=== PATIENT | female | born 1955 | race Caucasian/White ===

== ENCOUNTER 2018-06-16 17:18 | Emergency (ER) | payer BC ==
--- OUTSIDE RECORDS SUMMARY | 2018-06-16 17:28 | XMS REPORT ---
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 Active Onset: 09/19/2012 Medications Custodial (Current) Use [place] Mcconnell M.D. Active Encounter Onset: 09/19/2012 Nxxad-3-gvgsipjooak deficiency [place] Mcconnell M.D. Active Onset: 12/19/2012 Crohn's disease [place] Mcconnell M.D. Active Onset: 12/03/2014 Taking medication ROLANDO [place] Active Social History Type Date Description Comments ETOH Use Denies alcohol use Smoking Patient is a former smoker quit in 09/2013 Allergies, Adverse Reactions, Alerts Date Description Reaction Status Severity Comments 05/04/2011 Penicillin active Medications Medication Date Status Form Strength Qnty SIG Indications Ordering Provider Diclofenac Active Gel 1% 100unit apply M25.562 Zsofia Sodium 018 s 2gms to [facility], CLINICAL REVIEW NURSE left knee twice a day Sulfasalazine Active Tablets 500mg 180tabs 2 tabs M45.0 Zsofia 016 by mouth JUS ElyP twice a day Z79.899 Hydrocodone-Acetaminophen 10/14/2015 Active Tablets 5-325mg 60tabs 1 tab M25.562 Zsofia by [facility], mouth CLINICAL REVIEW NURSE every 6 hours as needed for pain F11.90 Zyrtec 03/13/2013 Active Capsules 10mg 30caps 1 po qd Other Allergy Ordering Provider Humira Pen 05/04/2011 Active PNKT 40mg/0.8M 2units Inject 40 M45.0 Zsofia L MG (0.8 ML) ROLANDO Ely Under The Skin Every Other Week Z79.899 Calcium 500 + D Active Tablets [id number]-[id number] i po bid M85.9 Unknown Vitamin E Active Capsules 400Unit 1 po qd Unknown Vitamin C Plus Active Tablets 500mg Unknown [place] Active Capsules 4-3-18-325mg as needed Unknown Plus Cold & Cough Alendronate Active Tablets 70mg 1 by mouth Z79.899 Unknown Sodium weekly M85.9 Tacrolimus Cream Active prn Unknown Omeprazole Active Capsules DR 40mg 1 by mouth Unknown bid Vitamin D-3 Active Capsules 1000 2 by mouth E55. Unknown Unit every day 9 Azelastine HCL Active Solution 0.1% spray 1 Unknown (Nasal) spray in each nostril two times a day as needed Fluticasone Active Suspension 50mc 2 sprays Unknown Propionate g/Ac each t nostril daily as needed Oxybutynin Active Tablets ER 10mg 1 by mouth Unknown Chloride ER 24HR every day Centrum Adults Active Tablets once a day Unknown Metamucil Active Powder 28.3 as needed Unknown % Methotrexate 03/22/2017 - Hx Tablets 2.5m 48ta 4 tbs by M45. Zsofia 06/27/2017 g bs mouth every 0 [facility], week CLINICAL REVIEW NURSE Folic Acid 03/22/2017 - Hx Tablets 1mg 90ta 1 by mouth Z79. Zsofia 06/27/2017 bs every day 899 [facility], CLINICAL REVIEW NURSE Voltaren 08/10/2016 - Hx Gel 1% 100g apply 2 M25. Zsofia 02/03/2018 m grams to 562 [facility], left knee CLINICAL REVIEW NURSE twice a day Sulfasalazine 02/10/2016 - Hx Tablets 500m 270t 2 tabs by M45. Zsofia 02/10/2016 g abs mouth in 0 [facility], the morning CLINICAL REVIEW NURSE and 1 tab in the evening Z79.899 Sulfasalazine 02/10/2016 - Hx Tablets DR 500mg 270tabs 2 tabs by M45.0 Zsofia 05/04/2016 mouth in [facility], CLINICAL REVIEW NURSE the morning and 1 tab at night daily Z79.899 Ergocalciferol 10/22/2015 - Hx Capsules [id number] 8caps 1 tab by Zsofia 02/10/2016 mouth [facility], weekly for CLINICAL REVIEW NURSE 8 weeks then resume 1000 iu daily dose and repeat labs Hydrocodone/Acetam 10/14/2015 - Hx 1 tab by Z79 Zsofiyoselyn inophen 500-300 MG 10/14/2015 mouth .89 [facility], every 6 - 9 CLINICAL REVIEW NURSE 8 hours as needed Vitamin D 12/03/2014 - Hx Capsules [id number] 8caps take 1 268 Zsofia (Ergocalciferol) 06/03/2015 capsule .9 [facility], every week CLINICAL REVIEW NURSE for 8 weeks Sulfasalazine 12/03/2014 - Hx Tablets DR 500mg 60tabs 1 by mouth M45 Zsofia 02/10/2016 twice .0 [facility], daily CLINICAL REVIEW NURSE Z79.899 Patanol 12/03/2014 - Hx 0.1% 5ml 1 gtt both 477.9 Zsofia 02/10/2016 eyes twice [facility], daily (pt CLINICAL REVIEW NURSE is not taking this ) Vitamin D 04/16/2014 - Hx Capsules [id number] 8caps take 1 268.9 Zsofia (Ergocalciferol) 08/20/2014 it capsule a [facility], week for 8 CLINICAL REVIEW NURSE weeks Hydrocodone/Aceta 01/22/2014 - Hx Tablets 5-325mg 90tabs 1 tablet by Z79.899 Zsofia minophen 10/14/2015 mouth every [facility], 6 hours as CLINICAL REVIEW NURSE needed Sulfasalazine 06/12/2013 - Hx Tablets 500mg 90tabs take 1 tab 555.9 Zsofia 12/03/2014 by mouth [facility], three times CLINICAL REVIEW NURSE a day 720.0 V58.69 Sulfasalazine 03/13/2013 - Hx Tablets 500mg 180tabs Take 2 Zsofia 06/12/2013 tabs po in [facility], CLINICAL REVIEW NURSE the morning and 1 tab po in the evening Hydrocodone/Aceta 05/04/2011 - Hx Tablets 5-500mg 120tabs Take 1 tab Zsofia minophen 01/22/2014 po q 6 [facility], CLINICAL REVIEW NURSE hours for pain as needed Sulfasalazine 05/04/2011 - Hx Tablets 500mg 60tabs Take One [place] 03/13/2013 Tablet By Roopa Mcconnell Mouth Twice Daily Ibuprofen 04/11/2011 - Hx Tablets 800mg 60tabs 1 po bid [place] 09/19/2012 Roopa Mcconnell Claudia Allergy - Hx Tablets 180mg 30tabs once daily Unknown 03/04/2015 Tylenol Extra - Hx Tablets 500mg 2 po prn Unknown Strength 09/19/2012 Multi Vitamin - Hx Tablets 1 po qd Unknown 09/19/2012 Prilosec - Hx Capsules DR 20mg 30caps 1 po qd Unknown 06/03/2015 Excedrin Extra - Hx Tablets 250-250- 100tabs 1-2 bid Unknown Strength 09/19/2012 65mg prn Fosamax - Hx Tablets 70mg 12tabs one tablet Unknown 09/18/2013 weekly Fluticasone - Hx Suspension 50mcg/Ac Instill 2 Unknown Propionate 06/03/2015 t Sprays Ien Once D Vitamin C - Hx Capsules 500-400m 1 by mouth Unknown W/Vitamin 06/27/2017 g-Unit every day E Immunizations CPT Code Status Date Vaccine Lot # [id number] Given 10/11/2017 Pneumonia Vaccine [id number] 19684 Given 10/14/2015 Pneumococcal Conjugate Vaccine 13 Valent For [id number] Intramuscular Use [id number] Given 08/27/2012 Fluzone Vaccine Vital Signs Date Vital Result Comment 05/30/2018 Height 62.25 inches 5'2.25" Weight 170.50 lb Heart Rate 73 /min BP Systolic Sitting 122 mmHg BP Diastolic Sitting 78 mmHg Pain Level 0 O2 % BldC Oximetry 95 % BMI (Body Mass Index) 30.9 kg/m2 02/21/2018 Height 62.25 inches 5'2.25" Weight 168.25 lb Heart Rate 80 /min BP Systolic Sitting 142 mmHg BP Diastolic Sitting 88 mmHg Respiratory Rate 14 /min Pain Level 1 BMI (Body Mass Index) 30.5 kg/m2 10/11/2017 Height 62.25 inches 5'2.25" Weight 169.12 lb Heart Rate 76 /min BP Systolic Sitting 122 mmHg BP Diastolic Sitting 74 mmHg Respiratory Rate 14 /min BMI (Body Mass Index) 30.7 kg/m2 06/28/2017 Height 62.25 inches 5'2.25" Weight 167.12 lb Heart Rate 72 /min BP Systolic Sitting 120 mmHg BP Diastolic Sitting 80 mmHg Respiratory Rate 14 /min Body Temperature 97.9 F Pain Level 1 BMI (Body Mass Index) 30.3 kg/m2 03/22/2017 Height 62.25 inches 5'2.25" Weight 171.00 lb Heart Rate 84 /min BP Systolic Sitting 140 mmHg BP Diastolic Sitting 90 mmHg Respiratory Rate 14 /min BMI (Body Mass Index) 31.0 kg/m2 12/14/2016 Weight 174.31 lb Heart Rate 65 /min BP Systolic Sitting 106 mmHg BP Diastolic Sitting 54 mmHg Body Temperature 97.5 F Pain Level 2 O2 % BldC Oximetry 98 % 12/14/2016 Weight 174.12 lb Heart Rate 75 /min BP Systolic Sitting 106 mmHg BP Diastolic Sitting 52 mmHg Body Temperature 97.4 F Pain Level 2 O2 % BldC Oximetry 98 % 08/10/2016 Height 65.25 inches 5'5.25" Weight 167.00 lb Heart Rate 88 /min BP Systolic Sitting 118 mmHg BP Diastolic Sitting 70 mmHg Body Temperature 98.1 F Pain Level 0 BMI (Body Mass Index) 27.6 kg/m2 05/04/2016 Height 65.25 inches 5'5.25" Weight 169.50 lb Heart Rate 76 /min BP Systolic Sitting 120 mmHg BP Diastolic Sitting 84 mmHg Body Temperature 98.4 F Pain Level 1 BMI (Body Mass Index) 28.0 kg/m2 02/10/2016 Height 65.25 inches 5'5.25" Weight 170.00 lb Heart Rate 80 /min BP Systolic Sitting 124 mmHg BP Diastolic Sitting 76 mmHg Pain Level 1 BMI (Body Mass Index) 28.1 kg/m2 10/14/2015 Height 65.25 inches 5'5.25" Weight 170.00 lb Heart Rate 68 /min BP Systolic Sitting 110 mmHg BP Diastolic Sitting 70 mmHg Pain Level 4 BMI (Body Mass Index) 28.1 kg/m2 06/03/2015 Height 65.25 inches 5'5.25" Weight 169.00 lb Heart Rate 82 /min BP Systolic Sitting 112 mmHg BP Diastolic Sitting 78 mmHg Pain Level 1 BMI (Body Mass Index) 27.9 kg/m2 03/04/2015 Height 65.25 inches 5'5.25" Weight 172.38 lb Heart Rate 82 /min BP Systolic Sitting 104 mmHg BP Diastolic Sitting 80 mmHg Respiratory Rate 16 /min Pain Level 3 BMI (Body Mass Index) 28.5 kg/m2 12/03/2014 Height 65.25 inches 5'5.25" Weight 174.50 lb Heart Rate 84 /min BP Systolic Sitting 118 mmHg BP Diastolic Sitting 70 mmHg Pain Level 3 BMI (Body Mass Index) 28.8 kg/m2 08/20/2014 Height 65.25 inches 5'5.25" Weight 172.00 lb Heart Rate 72 /min BP Systolic Sitting 130 mmHg BP Diastolic Sitting 80 mmHg Pain Level 0 BMI (Body Mass Index) 28.4 kg/m2 04/16/2014 Height 65.25 inches 5'5.25" Weight 168.50 lb Heart Rate 88 /min BP Systolic Sitting 92 mmHg BP Diastolic Sitting 60 mmHg Pain Level 0 BMI (Body Mass Index) 27.8 kg/m2 01/22/2014 Height 65.25 inches 5'5.25" Weight 165.00 lb Heart Rate 84 /min BP Systolic Sitting 116 mmHg BP Diastolic Sitting 72 mmHg BMI (Body Mass Index) 27.2 kg/m2 09/18/2013 Height 65.25 inches 5'5.25" Weight 159.00 lb Heart Rate 80 /min BP Systolic Sitting 124 mmHg BP Diastolic Sitting 82 mmHg BMI (Body Mass Index) 26.3 kg/m2 06/12/2013 Weight 155.00 lb Heart Rate 77 /min BP Systolic Sitting 108 mmHg BP Diastolic Sitting 70 mmHg 03/13/2013 Height 64 inches 5'4" Weight 142.00 lb Heart Rate 72 /min BP Systolic Sitting 110 mmHg BP Diastolic Sitting 62 mmHg BMI (Body Mass Index) 24.4 kg/m2 12/19/2012 Height 64 inches 5'4" Weight 138.50 lb Heart Rate 71 /min BP Systolic Sitting 127 mmHg BP Diastolic Sitting 67 mmHg BMI (Body Mass Index) 23.8 kg/m2 09/19/2012 Height 64 inches 5'4" Weight 145.00 lb Heart Rate 77 /min BP Systolic Sitting 120 mmHg BP Diastolic Sitting 71 mmHg BMI (Body Mass Index) 24.9 kg/m2 05/16/2012 Height 64 inches 5'4" Weight 136.50 lb Heart Rate 68 /min BP Systolic Sitting 123 mmHg BP Diastolic Sitting 66 mmHg BMI (Body Mass Index) 23.4 kg/m2 01/11/2012 Height 64 inches 5'4" Weight 132.00 lb Heart Rate 74 /min BP Systolic Sitting 119 mmHg BP Diastolic Sitting 71 mmHg BMI (Body Mass Index) 22.7 kg/m2 09/07/2011 Height 64 inches 5'4" Weight 145.00 lb Heart Rate 64 /min BP Systolic Sitting 110 mmHg BP Diastolic Sitting 80 mmHg BMI (Body Mass Index) 24.9 kg/m2 05/04/2011 Weight 150.00 lb Heart Rate 80 /min BP Systolic 116 mmHg BP Diastolic 70 mmHg Results Test Date Test Result H/L Range Note Comp Metabolic Panel 09/15/2013 Sodium 137 mmol/L 133-145 Potassium 4.7 mmol/L 3.5-5.0 Chloride 104 mmol/L 101-111 Co2 Carbon Dioxide 29.0 mmol/L 22-32 Anion Gap 4.0 mmol/L 2-11 Glucose 89 mg/dL 70-100 Blood Urea Nitrogen 12 mg/dL 6-24 Creatinine 0.60 mg/dL 0.50-1.40 BUN/Creatinine Ratio 20.0 8-20 Calcium 9.4 mg/dL 8.1-9.9 Total Protein 6.1 g/dL Low 6.2-8.1 Albumin 3.6 g/dL 3.6-5.4 Globulin 2.5 g/dL 2-4 Albumin/Globulin Ratio 1.4 1-3 Total Bilirubin 0.7 mg/dL 0.4-1.5 Alkaline Phosphatase 47 U/L 30-110 Alt 19 U/L 14-54 Ast 21 U/L 12-42 Egfr Non- 103.0 >60 Egfr 132.5 >60 1 Laboratory test 09/15/2013 C Reactive Protein 1.3 mg/dL High Less than 0.5 finding Laboratory test 09/15/2013 Erythrocyte Sed Rate 41 mm/Hr High 0-30 finding CBC Auto Diff 09/15/2013 White Blood Count 7.1 10^3/uL 4.8-10.8 Red Blood Count 4.01 10^6/uL 4.0-5.4 Hemoglobin 12.3 g/dL 12.0-16.0 Hematocrit 38 % 35-47 Mean Corpuscular Volume 95 fL 80-97 Mean Corpuscular Hemoglobin 31 pg 27-31 Mean Corpuscular HGB Conc 32 g/dL 31-36 Red Cell Distribution Width 13 % 10.5-15 Platelet Count 347 10^3/uL 150-450 Mean Platelet Volume 9 um3 7.4-10.4 Abs Neutrophils 4.6 10^3/uL 1.5-7.7 Abs Lymphocytes 1.7 10^3/uL 1.0-4.8 Abs Monocytes 0.8 10^3/uL 0-0.8 Abs Eosinophils 0 10^3/uL 0-0.6 Abs Basophils 0 10^3/uL 0-0.2 Abs Nucleated RBC 0 10^3/uL Granulocyte % 64.0 % 38-83 Lymphocyte % 23.4 % Low 25-47 Monocyte % 11.6 % High 1-9 Eosinophil % 0.6 % 0-6 Basophil % 0.4 % 0-2 Nucleated Red Blood Cells % 0 Laboratory test finding 06/04/2013 Erythrocyte Sed Rate 37 mm/Hr High 0- 30 CBC With Manual Diff 06/04/2013 White Blood Count 8.3 10^3/uL 4.8-10.8 Red Blood Count 3.83 10^6/uL Low 4.0-5.4 Hemoglobin 12.0 g/dL 12.0-16.0 Hematocrit 37 % 35-47 Mean Corpuscular Volume 96 fL 80-97 Mean Corpuscular Hemoglobin 31 pg 27-31 Mean Corpuscular HGB Conc 33 g/dL 31-36 Red Cell Distribution Width 13 % 10.5-15 Platelet Count 346 10^3/uL 150-450 Mean Platelet Volume 8 um3 7.4-10.4 Abs Neutrophils 5.5 10^3/uL 1.5-7.7 Abs Lymphocytes 1.9 10^3/uL 1.0-4.8 Abs Monocytes 0.8 10^3/uL 0-0.8 Abs Eosinophils 0.1 10^3/uL 0-0.6 Abs Basophils 0 10^3/uL 0-0.2 Abs Nucleated RBC 0 10^3/uL Neutrophil % 58 % 38-83 Lymphocytes % 25 % 25-47 Monocytes % 14 % High 0-13 Eosinophils % 2 % 0-6 Reactive Lymph % 1 % 0-6 RBC Morphology Normal Normal Laboratory test finding 06/04/2013 C Reactive Protein 1.1 mg/dL High Less than 0.5 Comp Metabolic Panel 06/04/2013 Sodium 140 mmol/L 133-145 Potassium 3.8 mmol/L 3.5-5.0 Chloride 108 mmol/L 101-111 Co2 Carbon Dioxide 28.0 mmol/L 22-32 Anion Gap 4.0 mmol/L 2-11 Glucose 84 mg/dL 70-100 Blood Urea Nitrogen 11 mg/dL 6-24 Creatinine 0.60 mg/dL 0.50-1.40 BUN/Creatinine Ratio 18.3 8-20 Calcium 8.8 mg/dL 8.1-9.9 Total Protein 6.0 g/dL Low 6.2-8.1 Albumin 3.3 g/dL Low 3.6-5.4 Globulin 2.7 g/dL 2-4 Albumin/Globulin Ratio 1.2 1-3 Total Bilirubin 0.6 mg/dL 0.4-1.5 Alkaline Phosphatase 46 U/L 30-110 Alt 15 U/L 14-54 Ast 20 U/L 12-42 Egfr Non- 103.0 >60 Egfr 132.5 >60 2 Laboratory test finding 03/05/2013 Erythrocyte Sed Rate 40 mm/Hr High 0- 30 CBC Auto Diff 03/05/2013 White Blood Count 6.5 10^3/uL 4.8-10.8 Red Blood Count 3.90 10^6/uL Low 4.0-5.4 Hemoglobin 12.3 g/dL 12.0-16.0 Hematocrit 37 % 35-47 Mean Corpuscular Volume 94 fL 80-97 Mean Corpuscular Hemoglobin 32 pg High 27-31 Mean Corpuscular HGB Conc 34 g/dL 31-36 Red Cell Distribution Width 13 % 10.5-15 Platelet Count 363 10^3/uL 150-450 Mean Platelet Volume 9 um3 7.4-10.4 Abs Neutrophils 4.0 10^3/uL 1.5-7.7 Abs Lymphocytes 1.8 10^3/uL 1.0-4.8 Abs Monocytes 0.6 10^3/uL 0-0.8 Abs Eosinophils 0.1 10^3/uL 0-0.6 Abs Basophils 0 10^3/uL 0-0.2 Abs Nucleated RBC 0 10^3/uL Granulocyte % 61.7 % 38-83 Lymphocyte % 27.5 % 25-47 Monocyte % 9.4 % High 1-9 Eosinophil % 1.2 % 0-6 Basophil % 0.2 % 0-2 Nucleated Red Blood Cells % 0 Laboratory test finding 03/05/2013 C Reactive Protein 0.9 mg/dL High Less than 0.5 Comp Metabolic Panel 03/05/2013 Sodium 140 mmol/L 133-145 Potassium 4.2 mmol/L 3.5-5.0 Chloride 107 mmol/L 101-111 Co2 Carbon Dioxide 28.0 mmol/L 22-32 Anion Gap 5.0 mmol/L 2-11 Glucose 94 mg/dL 70-100 Blood Urea Nitrogen 11 mg/dL 6-24 Creatinine 0.60 mg/dL 0.50-1.40 BUN/Creatinine Ratio 18.3 8-20 Calcium 9.0 mg/dL 8.1-9.9 Total Protein 5.8 g/dL Low 6.2-8.1 Albumin 3.2 g/dL Low 3.6-5.4 Globulin 2.6 g/dL 2-4 Albumin/Globulin Ratio 1.2 1-3 Total Bilirubin 0.8 mg/dL 0.4-1.5 Alkaline Phosphatase 36 U/L 30-110 Alt 13 U/L Low 14-54 Ast 17 U/L 12-42 Egfr Non- 103.0 >60 Egfr 132.5 >60 3 Comp Metabolic Panel 12/16/2012 Sodium 136 mmol/L 133-145 Potassium 4.0 mmol/L 3.5-5.0 Chloride 104 mmol/L 101-111 Co2 Carbon Dioxide 28.0 mmol/L 22-32 Anion Gap 4.0 mmol/L 2-11 Glucose 84 mg/dL 70-100 Blood Urea Nitrogen 12 mg/dL 6-24 Creatinine 0.60 mg/dL 0.50-1.40 BUN/Creatinine Ratio 20.0 8-20 Calcium 9.1 mg/dL 8.1-9.9 Total Protein 6.1 g/dL Low 6.2-8.1 Albumin 3.5 g/dL Low 3.6-5.4 Globulin 2.6 g/dL 2-4 Albumin/Globulin Ratio 1.3 1-3 Total Bilirubin 0.8 mg/dL 0.4-1.5 Alkaline Phosphatase 36 U/L 30-110 Alt 13 U/L Low 14-54 Ast 18 U/L 12-42 Egfr Non- 103.0 >60 Egfr 132.5 >60 4 Laboratory test 12/16/2012 C Reactive Protein 0.9 mg/dL High Less than 0.5 finding CBC With Manual Diff 12/16/2012 White Blood Count 6.9 10^3/uL 4.8-10.8 Red Blood Count 3.67 10^6/uL Low 4.0-5.4 Hemoglobin 12.1 g/dL 12.0-16.0 Hematocrit 35 % 35-47 Mean Corpuscular Volume 97 fL 80-97 Mean Corpuscular Hemoglobin 33 pg High 27-31 Mean Corpuscular HGB Conc 34 g/dL 31-36 Red Cell Distribution Width 13 % 10.5-15 Platelet Count 239 10^3/uL 150-450 Mean Platelet Volume 9 um3 7.4-10.4 Abs Neutrophils 4.0 10^3/uL 1.5-7.7 Abs Lymphocytes 2.0 10^3/uL 1.0-4.8 Abs Monocytes 0.7 10^3/uL 0-0.8 Abs Eosinophils 0.1 10^3/uL 0-0.6 Abs Basophils 0.1 10^3/uL 0-0.2 Abs Nucleated RBC 0 10^3/uL Neutrophil % 55 % 38-83 Lymphocytes % 39 % 25-47 Monocytes % 4 % 0-13 Eosinophils % 1 % 0-6 Reactive Lymph % 1 % 0-6 RBC Morphology Normal Normal Laboratory test finding 12/16/2012 Erythrocyte Sed Rate 37 mm/Hr High 0- 30 Comp Metabolic Panel 09/12/2012 Sodium 135 mmol/L 133-145 Potassium 3.9 mmol/L 3.5-5.0 Chloride 106 mmol/L 101-111 Co2 Carbon Dioxide 27.0 mmol/L 22-32 Anion Gap 2.0 mmol/L 2-11 Glucose 86 mg/dL 70-100 Blood Urea Nitrogen 12 mg/dL 6-24 Creatinine 0.60 mg/dL 0.50-1.40 BUN/Creatinine Ratio 20.0 8-20 Calcium 8.6 mg/dL 8.1-9.9 Total Protein 5.7 GM/DL Low 6.2-8.1 Albumin 3.4 GM/DL Low 3.6-5.4 Globulin 2.3 GM/DL 2-4 Albumin/Globulin Ratio 1.5 1-3 Total Bilirubin 0.6 mg/dL 0.1-1.0 5 Alkaline Phosphatase 44 U/L 30-110 Alt 14 U/L 14-54 Ast 19 U/L 12-42 Egfr Non- 103.4 >60 Egfr 133.0 >60 6 Laboratory test 09/12/2012 C Reactive Protein 0.8 mg/dL High Less Than 0.5 finding CBC With Manual Diff 09/12/2012 White Blood Count 6.5 10^3/uL 4.8-10.8 Red Blood Count 3.89 10^6/uL Low 4.0-5.4 Hemoglobin 12.6 g/dL 12.0-16.0 Hematocrit 38 % 35-47 Mean Corpuscular Volume 97 fL 80-97 Mean Corpuscular Hemoglobin 32 pg High 27-31 Mean Corpuscular HGB Conc 34 g/dL 31-36 Red Cell Distribution Width 14 % 10.5-15 Platelet Count 320 10^3/uL 150-450 Mean Platelet Volume 9 um3 7.4-10.4 Abs Neutrophils 3.7 10^3/uL 1.5-7.7 Abs Lymphocytes 1.9 10^3/uL 1.0-4.8 Abs Monocytes 0.8 10^3/uL 0-0.8 Abs Eosinophils 0 10^3/uL 0-0.6 Abs Basophils 0 10^3/uL 0-0.2 Abs Nucleated RBC 0 10^3/uL Neutrophil % 57.0 % 38-83 Band % 2.0 % 0-8 Lymphocytes % 27.0 % 25-47 Monocytes % 13.0 % 0-13 Eosinophils % 0 % 0-6 Basophil % 1.0 % 0-2 Reactive Lymph % 0 % 0-6 Metamyelocytes % 0 % 0-2 Myelocytes % 0 % 0-1 Promyelocytes % 0 % Blast % 0 % RBC Morphology Normal Normal Laboratory test finding 09/12/2012 Erythrocyte Sed Rate 30 MM/HR 0-30 Laboratory test finding 09/12/2012 Alpha 1 Antitrypsin A1a TNP 7 Alpha 1 Antitrypsin Phenotypin 09/12/2012 A1a Phenotype MZ bands 8 Alpha 1 Antitrypsin A1a 95 mg/dL 100 - 190 9 Comp Metabolic Panel 05/08/2012 Sodium 139 mmol/L 135-145 Potassium 4.4 mmol/L 3.5-5.0 Chloride 112 mmol/L High 101-111 Co2 (Carbon Dioxide) 25.0 mmol/L 22-32 Anion Gap 2.0 mmol/L 2-11 10 Glucose 88 mg/dL 70-100 BUN 13 mg/dL 6-24 Creatinine 0.5 mg/dL Low 0.50-1.40 One Over Creatinine 2.00 BUN/Creatinine Ratio 26.0 High 8-20 Calcium 8.6 mg/dL 8.1-9.9 Total Protein 5.3 GM/DL Low 6.2-8.1 Albumin 3.0 GM/DL Low 3.6-5.4 Globulin 2.3 GM/DL 2-4 Albumin/Globulin Ratio 1.3 1-3 Bilirubin Total 0.7 mg/dL 0.4-1.5 11 Alkaline Phosphatase 41 U/L 30-110 Alt (SGPT) 16 U/L 14-54 Ast (Sgot) 18 U/L 12-42 eGFR Non- 127.6 > 60 eGFR 164.1 > 60 12 Laboratory test finding 05/08/2012 C Reactive Protein 0.8 mg/dL High Less Than 0.5 CBC With Manual Diff 05/08/2012 White Blood Count 8.1 CUMM 4.8-10.8 Red Cell Count 3.53 CUMM Low 4.2-5.4 Hemoglobin 11.3 g/dL Low 12.0-16.0 Hematocrit 34 % Low 35-47 Mean Corpuscular Volume 96 um3 79-97 Mean Corpuscular Hemoglob 32 pg High 27-31 Mean Corpuscular HGB Cone 34 g/dL 32-36 Redcell Distribution WDTH 13 % 10.5-15 Platelet Count 360 CUMM 150-450 Mean Platelet Volume 8.4 um3 7.4-10.4 Absolute Neutrophil Count 5.5 1.5-7.7 Polysegmented Neutrophil 68 % 38-83 Lymphocyte 29 % 25-47 Monocyte 3 % 0-13 RBC Morphology NORMAL Laboratory test finding 05/08/2012 Erythrocyte Sed Rate 41 MM/HR High 0- 30 1 Because ethnic data is not always readily available, this report includes an eGFR for both -Americans and non- Americans. The National Kidney Disease Education Program (NKDEP) does not endorse the use of the MDRD equation for patients that are not between the ages of 18 and 70, are , have extremes of body size, muscle mass, or nutritional status, or are non- or non-. According to the National Kidney Foundation, irrespective of diagnosis, the stage of the disease is based on the level of kidney function: Stage Description GFR(mL/min/1.73 m(2)) 1 Kidney damage with normal or decreased GFR 90 2 Kidney damage with mild decrease in GFR 60-89 3 Moderate decrease in GFR 30-59 4 Severe decrease in GFR 15-29 5 Kidney failure <15 (or dialysis) 2 Because ethnic data is not always readily available, this report includes an eGFR for both -Americans and non- Americans. The National Kidney Disease Education Program (NKDEP) does not endorse the use of the MDRD equation for patients that are not between the ages of 18 and 70, are , have extremes of body size, muscle mass, or nutritional status, or are non- or non-. According to the National Kidney Foundation, irrespective of diagnosis, the stage of the disease is based on the level of kidney function: Stage Description GFR(mL/min/1.73 m(2)) 1 Kidney damage with normal or decreased GFR 90 2 Kidney damage with mild decrease in GFR 60-89 3 Moderate decrease in GFR 30-59 4 Severe decrease in GFR 15-29 5 Kidney failure <15 (or dialysis) 3 Because ethnic data is not always readily available, this report includes an eGFR for both -Americans and non- Americans. The National Kidney Disease Education Program (NKDEP) does not endorse the use of the MDRD equation for patients that are not between the ages of 18 and 70, are , have extremes of body size, muscle mass, or nutritional status, or are non- or non-. According to the National Kidney Foundation, irrespective of diagnosis, the stage of the disease is based on the level of kidney function: Stage Description GFR(mL/min/1.73 m(2)) 1 Kidney damage with normal or decreased GFR 90 2 Kidney damage with mild decrease in GFR 60-89 3 Moderate decrease in GFR 30-59 4 Severe decrease in GFR 15-29 5 Kidney failure <15 (or dialysis) 4 Because ethnic data is not always readily available, this report includes an eGFR for both -Americans and non- Americans. The National Kidney Disease Education Program (NKDEP) does not endorse the use of the MDRD equation for patients that are not between the ages of 18 and 70, are , have extremes of body size, muscle mass, or nutritional status, or are non- or non-. According to the National Kidney Foundation, irrespective of diagnosis, the stage of the disease is based on the level of kidney function: Stage Description GFR(mL/min/1.73 m(2)) 1 Kidney damage with normal or decreased GFR 90 2 Kidney damage with mild decrease in GFR 60-89 3 Moderate decrease in GFR 30-59 4 Severe decrease in GFR 15-29 5 Kidney failure <15 (or dialysis) 5 A metabolite of Naproxen, O-desmethylnaproxen, has been shown to interfere with the [place] method for measuring total bilirubin. Samples from patients who have taken Naproxen have shown spurious elevation in total bilirubin levels. 6 Because ethnic data is not always readily available, this report includes an eGFR for both -Americans and non- Americans. The National Kidney Disease Education Program (NKDEP) does not endorse the use of the MDRD equation for patients that are not between the ages of 18 and 70, are , have extremes of body size, muscle mass, or nutritional status, or are non- or non-. According to the National Kidney Foundation, irrespective of diagnosis, the stage of the disease is based on the level of kidney function: Stage Description GFR(mL/min/1.73 m(2)) 1 Kidney damage with normal or decreased GFR 90 2 Kidney damage with mild decrease in GFR 60-89 3 Moderate decrease in GFR 30-59 4 Severe decrease in GFR 15-29 5 Kidney failure <15 (or dialysis) 7 [id number], S was cancelled on 09/13/2012 at 11:02; Test cancelled by RBS rule <AAT1> Reason: Test AAT is cancelled due to being ordered with Test A1APP. Test Performed by: [place] [address] Envelope Folder: Gagandeep Perla III, M.D. R 8 Heterozygous for M and Z isoforms. This phenotype may be associated with modestly reduced rlpam-1-wjkqmyaiqwn concentrations. R 9 Test Performed by: [place] [address] Envelope Folder: Gagandeep Perla III, M.D. R 10 Anion gap measurement may be of limited value in the presence of any alkalosis, especially in a combined acid base disorder. . 11 A metabolite of Naproxen, O-desmethylnaproxen, has been shown to interfere with the [place] method for measuring total bilirubin. Samples from patients who have taken Naproxen have shown spurious elevation in total bilirubin levels. 12 Because ethnic data is not always readily available, this report includes an eGFR for both -Americans and non- Americans. The National Kidney Disease Education Program (NKDEP) does not endorse the use of the MDRD equation for patients that are not between the ages of 18 and 70, are , have extremes of body size, muscle mass, or nutritional status, or are non- or non-. According to the National Kidney Foundation, irrespective of diagnosis, the stage of the disease is based on the level of kidney function: Stage Description GFR(mL/min/1.73 m(2)) 1 Kidney damage with normal or decreased GFR 90 2 Kidney damage with mild decrease in GFR 60-89 3 Moderate decrease in GFR 30-59 4 Severe decrease in GFR 15-29 5 Kidney failure <15 (or dialysis) Procedures Date CPT Code Description Status 07/23/2017 Bone Mineral Density Test Completed 07/20/2015 Bone Mineral Density Test Completed Encounters Type Date Location Provider CPT E/M Dx Office Visit 02/21/2018 [facility] [address] M45.0 10:30a Of Department [employer] 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 [employer]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 K50.90 M85.9 Z79.899 M25.529 M85.80 M25.522 Office Visit 10/11/2017 3:30p [facility], [facility] [address] M45.0 Department [employer] K50.90 M81.0 Z79.899 Z23 Office Visit 06/28/2017 3:30p [facility], [facility] [address] M45.0 Department [employer] K50.90 M85.9 Z79.899 Office Visit 03/22/2017 3:00p [facility], [facility] [address] M45.0 Department [employer] K50.90 M25.562 M85.9 Z79.899 Office Visit 12/14/2016 3:00p [facility], [facility] [address] M45.0 Department [employer] K50.90 M25.562 M85.9 Z79.899 Office Visit 08/10/2016 3:00p [facility] [address] M45.0 Department [employer] K50.90 M25.562 M85.9 E55.9 Z79.899 K21.9 Office Visit 05/04/2016 2:00p [facility], [facility] [address] M45.0 Department [employer] K50.90 E88.01 R79.82 R70.0 M85.9 E55.9 Z79.899 Office Visit 02/10/2016 2:30p [facility], [facility] [address] M45.0 Department [employer] E88.01 E55.9 M85.9 Z79.899 K50.90 Office Visit 10/14/2015 2:00p [facility] [address] M45.0 Department [employer] E88.01 E55.9 M85.9 Z79.899 Z23 Office Visit 06/03/2015 2:30p [facility], [facility] [address] 720.0 Department [employer] 555.9 268.9 273.4 V58.69 733.90 Office Visit 03/04/2015 3:00p [facility] [address] 720.0 Department [employer] 555.9 719.46 268.9 360.11 V58.69 Office Visit 12/03/2014 3:30p [facility] [address] 720.0 Department [employer] 555.9 268.9 719.46 V58.69 477.9 Office Visit 08/20/2014 3:00p [facility] [address] 720.0 Department [employer] 555.9 268.9 360.11 273.4 V58.69 Office Visit 04/16/2014 3:30p [facility] [address] 720.0 Department [employer] 555.9 719.46 V58.69 268.9 Office Visit 01/22/2014 3:30p [facility] [address]802 720.0 Department [employer] 555.9 273.4 V58.69 Office Visit 09/18/2013 3:00p [facility] [address]255 720.0 Department [employer] 555.9 273.4 V58.69 Office Visit 06/12/2013 3:00p [facility] [address] 720.0 Department [employer] 555.9 273.4 V58.69 719.46 Office Visit 03/13/2013 2:20p [facility] [address]647 720.0 Department [employer] 273.4 555.9 V58.69 Office Visit 12/19/2012 11:00a [facility] [place] Mcconnell M.D. 21341 720.0 Of Department [employer] V58.69 273.4 555.9 Office Visit 09/19/2012 10:00a [facility] [place] Mcconnell M.D. 62087 720.0 Of Department [employer] V58.69 273.4 Office Visit 05/16/2012 11:00a [facility] [place] Mcconnell M.D. 88239 720.0 Of Department [employer] V58.69 Office Visit 01/11/2012 3:00p [facility] [place] Mcconnell M.D. 30755 720.0 Of Department [employer] V58.69 360.11 555.9 Office Visit 09/07/2011 3:00p [facility] [place] Mcconnell M.D. 06782 720.0 Of Department [employer] V58.69 Office Visit 05/04/2011 3:00p [facility] [place] Mcconnell M.D. 15913 720.0 Of [facility] V58.69 Plan of Care Future Appointment(s):09/05/2018 10:00 am - ROLANDO Soliman at [facility]05/30/2018 - Madhu Ely, JUSPM45.0 Ankylosing spondylitis of multiple sites in spineComments:Your spondylitic arthritis seems to be symptomatically well controlled at this time.Please, continuewith present medication regime.Continue with regular blood tests. You have a standing lab order on file. Refills sent to your pharmacy.Please call the office if you develop any sign or symptoms of infection or acute change in your health.Follow up:3 month labs smnmrY79.90 Crohn's disease, unspecified, without szmcknhzjgjubH59.9 Disorder of bone density and structure, unspecifiedComments: I would recommend to stop Fosamax and start on a new medication called Prolia and recheck bone density in 2 years.Please continue on your Ca and vitamin D supplement and weight bearing exercise.Please discuss with your [id number] Other technician terminal and repeater (current) drug therapy
[2018-06-16 17:32] VITALS: BP 125/78
--- NOTE | 2018-06-16 17:48 | UC ---
Knee Pain HPI - HPI Summary HPI Summary: Patient states she fell on her porch and down the steps hitting her right knee. After a while knee had prominent swelling which alarmed her and prompted her to come to UC. When she came the swelling had regressed and she only has a small bruise. - History of Current Complaint Chief Complaint: UCTrauma Stated Complaint: RT KNEE PAIN S/P FALL Time Seen by Provider: 06/16/18 17:38 Hx Obtained From: Patient ?: No Onset/Duration: Sudden Onset, Lasting Hours Severity Initially: Mild Severity Currently: Mild Pain Intensity: 2 Character: Dull Aggravating Factor(s): Movement Alleviating Factor(s): Rest Associated Signs And Symptoms: Positive: Swelling, Bruising Able to Bear Weight: Yes - Risk Factors Septic Arthritis Risk Factor: Negative Gout Risk Factor: Negative - Allergies/Home Medications Allergies/Adverse Reactions: Allergies Allergy/AdvReac Type Severity Reaction Status Date / Time Penicillins Allergy Hives Verified 06/16/18 17:32 Home Medications: Home Medications Adalimumab [Humira Pen] 06/16/18 [History] Alendronate (NF) [Fosamax (NF)] 70 mg PO MONTHLY 06/16/18 [History Confirmed 04/28] Cetirizine* [ZyrTEC 10 MG TAB*] 10 mg PO DAILY 06/16/18 [History Confirmed 06/16] Fluticasone Propionate [24 Hour Allergy] 9.9 ml NS 06/16/18 [History] Omeprazole CAP* [Prilosec CAP* 20 MG] 20 mg PO DAILY 06/16/18 [History Confirmed 06/16/18] Oxybutynin TAB* [Ditropan TAB*] 5 mg PO BID 06/16/18 [History Confirmed 06/16/18 ] sulfaSALAzine TAB* [Azulfidine TAB*] 1,000 mg PO BID 06/16/18 [History Confirmed 06/16/18] PMH/Surg Hx/FS Hx/Imm Hx Previously Healthy: Yes - history of Crohn's disease, ankylosing spondylitis and osteoporosis GI/ History: Gastroesophageal Reflux - Surgical History Surgical History: Yes Surgery Procedure, Year, and Place: L knee surgery - fx patella - Social History Alcohol Use: None Substance Use Type: Marijuana Smoking Status (MU): Former Smoker Review of Systems Musculoskeletal: Arthralgia, Myalgia All Other Systems Reviewed And Are Negative: Yes Physical Exam Triage Information Reviewed: Yes Appearance: Well-Appearing, No Pain Distress, Well-Nourished Vital Signs: Initial Vital Signs Temp 98.2 F 06/16/18 17:26 Pulse 81 06/16/18 17:26 Resp 18 06/16/18 17:26 BP 125/78 06/16/18 17:26 Pulse Ox 97 06/16/18 17:26 Vital Signs Reviewed: Yes Eyes: Positive: Conjunctiva Clear ENT: Positive: Hearing grossly normal Neck: Positive: Supple Respiratory: Positive: Chest non-tender Cardiovascular: Positive: Pulses Normal, Brisk Capillary Refill Musculoskeletal: Positive: Strength Intact, ROM Intact, No Edema, Other: - no knee effusion, small hematoma on medial aspect of right patella. Patella is mobile, non tender, no effusion, ADT/PDT negative, varus/valgus tests negative Knee Pain Course/Dx - Course Course Of Treatment: SERGIO bandage applied, elevate and ice leg for first 24 hr, ibuprofen as needed which she has at home - Differential Dx/Diagnosis Provider Diagnoses: knee contussion Discharge - Sign-Out/Discharge Documenting (check all that apply): Patient Departure - Discharge Plan Condition: Stable Disposition: HOME Patient Education Materials: Ibuprofen (By mouth), Knee Sprain (ED) Referrals: Geovanny Rios MD [Primary Care Provider] - - Billing Disposition and Condition Condition: STABLE Disposition: Home
== END 2018-06-16 17:57 | disposition home or self-care (01) ==
LOC: UCCORT 17:18
DX: S80.01XA Contusion of right knee, initial encounter (principal); W10.9XXA Fall (on) (from) unspecified stairs and steps, initial encounter; Y93.9 Activity, unspecified; Y92.008 Other place in unspecified non-institutional (private) residence as the place of occurrence of the external cause; Z88.0 Allergy status to penicillin; K21.9 Gastro-esophageal reflux disease without esophagitis; M45.9 Ankylosing spondylitis of unspecified sites in spine; K50.90 Crohn's disease, unspecified, without complications; Z87.891 Personal history of nicotine dependence
CPT/HCPCS: 99201; G0463